=== PATIENT | female | born 1970 | race Hispanic/Latino ===

== ENCOUNTER → 2022-12-30 | Outpatient (CLI) | payer OTHER | END | disposition home or self-care (01) | LOC: RAH 15:38 | PROVIDERS: ATTEND Internal Medicine | DX: M47.26 Other spondylosis with radiculopathy, lumbar region (principal); M48.061 Spinal stenosis, lumbar region without neurogenic claudication; M54.30 Sciatica, unspecified side | CPT/HCPCS: 72100 ==